=== PATIENT | female | born 1990 | race Hispanic/Latino ===

== ENCOUNTER → 2023-10-23 | Emergency (ER) | payer OTHER, SELFPAY ==
--- NOTE | 2023-10-23 21:31 | RAD REPORT ---
EXAM DESCRIPTION: Anibal Single View10/23/2023 9:07 pm CLINICAL HISTORY: Chest pain COMPARISON: none FINDINGS: The lungs appear clear of acute infiltrate. The heart is normal size IMPRESSION: No acute abnormalities displayed
[2023-10-23 22:40] LABS: Absolute Lymphocytes (CBC) 1.8 K/uL (0.7-4.9); Basophils % 0.4 % (0-1.3); Eosinophils % 0.2 % (0-4.4); Hematocrit 34.6 % (36.0-45.0); Lymphocytes % 17.6 % (15.3-44.8); MCV 95.1 fL (80-100); MPV 8.9 fL (7.6-11.3); Platelets 261 thou/uL (152-406); RBC Red Blood Cell Count 3.64 M/uL (3.86-4.86)
[2023-10-23 22:49] LABS: Anion Gap 7.5 mEq/L (5.0-15.0); Potassium 3.5 mEq/L (3.5-5.1); Troponin High Sensitivity 5.2 pg/mL (<58.9)
--- NOTE | 2023-10-23 23:48 | ER ---
Nurse's Notes [facility] Name: Poonam Taylor Age: 33 yrs Sex: Female : 1990 Arrival Date: 10/23/2023 Time: 20:28 Bed DX5 Private MD: Diagnosis: Chest pain, unspecified Presentation: 10/22 20:48 Chief complaint: Patient states: intermittent sharp substernal chest pain for 1.5 weeks km8 with some SOB; denies n/v/d or cough or fever/chills; also complaints of left leg cramping. Coronavirus screen: Client denies travel out of the [place] in the last 14 days. Ebola Screen: No symptoms or risks identified at this time. Initial Sepsis Screen: Does the patient meet any 2 criteria? HR > 90 bpm. No. Patient's initial sepsis screen is negative. Does the patient have a suspected source of infection? No. Patient's initial sepsis screen is negative. Risk Assessment: Do you want to hurt yourself or someone else? Patient reports no desire to harm self or others. Onset of symptoms was October 12, 2023. 20:48 Method Of Arrival: Ambulatory km8 20:48 Acuity: TITA 2 km8 Triage Assessment: 20:48 General: Appears in no apparent distress. Behavior is calm, cooperative, appropriate km8 for age. Pain: Complains of pain in mid-sternal area Pain does not radiate. Pain currently is 6 out of 10 on a pain scale. Quality of pain is described as sharp, Is intermittent. EENT: No signs and/or symptoms were reported regarding the EENT system. Neuro: Level of Consciousness is awake, alert, obeys commands, Oriented to person, place, time, situation, Appropriate for age. Cardiovascular: Reports chest pain, shortness of breath, Patient's skin is warm and dry. Respiratory: Airway is patent Respiratory effort is even, unlabored, Respiratory pattern is regular, symmetrical. GI: No signs and/or symptoms were reported involving the gastrointestinal system. : No signs and/or symptoms were reported regarding the genitourinary system. Derm: No signs and/or symptoms reported regarding the dermatologic system. Skin is intact, is healthy with good turgor, Skin is dry, Skin is pink, warm \T\ dry. normal, Skin temperature is warm. Musculoskeletal: Range of motion: intact in all extremities, Reports intermittent left leg cramping. 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 - Social history:: Smoking status: Patient denies any tobacco usage or history of. Patient uses street drugs, marijuana, Patient/guardian denies using alcohol. Screenin:48 [facility] ED Fall Risk Assessment (Adult) History of falling in the last 3 months, km8 including since admission No falls in past 3 months (0 pts) Confusion or Disorientation No (0 pts) Intoxicated or Sedated No (0 pts) Impaired Gait No (0 pts) Mobility Assist Device Used No (0 pt) Altered Elimination No (0 pt) Score/Fall Risk Level 0 - 2 = Low Risk Oriented to surroundings, Maintained a safe environment, Educated pt \T\ family on fall prevention, incl call for assistance when getting out of bed, Assessed \T\ reinforced patient's understanding of fall precautions. Abuse screen: Denies threats or abuse. Denies injuries from another. Nutritional screening: No deficits noted. Tuberculosis screening: No symptoms or risk factors identified. Assessment: 20:48 Reassessment: see triage assessment/notes. km8 22:08 Reassessment: Patient appears in no apparent distress at this time. km8 Vital Signs: 20:48 BP 150 / 93; Pulse 95; Resp 16; Temp 99(TE); Pulse Ox 100% on R/A; Weight 49.9 kg (R); km8 Height 5 ft. 1 in. (R); Pain 6/10; 23:59 BP 106 / 64; Pulse 62; Resp 16; Temp 98.9(TE); Pulse Ox 100% on R/A; Pain 3/10; km8 20:48 Body Mass Index 20.78 (49.90 kg, 154.94 cm) km8 20:48 Pain Scale: Adult 8 23:59 Pain Scale: Adult 8 Tracy Coma Score: 20:48 Eye Response: spontaneous(4). Motor Response: obeys commands(6). Verbal Response: km8 oriented(5). Total: 15. ED Course: 20:34 Patient arrived in ED. gm2 20:43 Jay Gurrola DO is Attending Physician. ms3 20:48 No provider procedures requiring assistance completed. Patient maintains SpO2 km8 saturation greater than 95% on room air. 20:48 Arm band placed on right wrist. km8 20:48 Patient has correct armband on for positive identification. km8 20:48 no rooms available for monitoring at this time. km8 20:52 EKG done, by ED staff, reviewed by Jay Gurrola DO. km8 20:54 Triage completed. km8 20:56 Patient placed in waiting room, Patient notified of wait time. km8 21:09 XRAY Chest (1 view) In Process Unspecified. EDMS 22:07 Initial lab(s) drawn, by me, sent to lab. Inserted saline lock: 20 gauge in left km8 antecubital area, using aseptic technique. Blood collected. 23:47 Bobby Vogt MD is Referral Physician. ms3 23:59 IV discontinued, intact, bleeding controlled, No redness/swelling at site. Pressure km8 dressing applied. 23:59 Provided Education on: d/c teaching. km8 Administered Medications: No medications were administered Medication: 20:48 VIS not applicable for this client. km8 Outcome: 23:47 Discharge ordered by . ms3 23:59 Discharged to home ambulatory, km8 23:59 Condition: good 23:59 Discharge instructions given to patient, Instructed on discharge instructions, follow up and referral plans. Demonstrated understanding of instructions, follow-up care, 10/23 00:00 Patient left the ED. km8 Signatures: Dispatcher [employer] EDWA Jay Gurrola DO DO ms3 Marquis Denise gm2 Valerie Alexander, RN RN km8
--- NOTE | 2023-10-23 23:48 | EDPHYS ---
Physician Documentation [facility] Name: Poonam Taylor Age: 33 yrs Sex: Female : 1990 Arrival Date: 10/23/2023 Time: 20:28 Bed DX5 Private MD: ED Physician Jay Gurrola HPI: 10/22 21:52 This 33 yrs old Female presents to ER via Ambulatory with complaints of Chest ms3 Tightness. 21:52 33-year-old female with no past medical history presents to the emergency department ms3 for 1 and half weeks of intermittent chest pain that is located substernally and described as being sharp. Patient states today's pain has been ongoing for a 3 hours. Patient states the pain is better after taking Tylenol.. 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 - Social history:: Smoking status: Patient denies any tobacco usage or history of. Patient uses street drugs, marijuana, Patient/guardian denies using alcohol. ROS: 21:52 Constitutional: Negative for fever, and chills. Neck: Negative for injury, pain, and ms3 swelling, Respiratory: Negative for shortness of breath, cough, wheezing, and pleuritic chest pain, Abdomen/GI: Negative for abdominal pain, nausea, vomiting, diarrhea, and constipation, MS/Extremity: Negative for injury and deformity, Skin: Negative for injury, rash, and discoloration, 21:52 Cardiovascular: Positive for chest pain, Exam: 21:52 Constitutional: This is a well developed, well nourished patient who is awake, alert, ms3 and in no acute distress. Head/Face: Normocephalic, atraumatic. Chest/axilla: Normal chest wall appearance and motion. Nontender with no deformity. Cardiovascular: Regular rate and rhythm with a normal S1 and S2. No gallops, murmurs, or rubs. Normal PMI, no JVD. No pulse deficits. Respiratory: Lungs have equal breath sounds bilaterally, clear to auscultation and percussion. No rales, rhonchi or wheezes noted. No increased work of breathing, no retractions or nasal flaring. Abdomen/GI: Soft, non-tender, with normal bowel sounds. No distension or tympany. No guarding or rebound. No evidence of tenderness throughout. Skin: Warm, dry with normal turgor. Normal color with no rashes, no lesions, and no evidence of cellulitis. MS/ Extremity: Pulses equal, no cyanosis. Neurovascular intact. Full, normal range of motion. 22:04 ECG was reviewed by the Attending Physician. ms3 Vital Signs: 20:48 BP 150 / 93; Pulse 95; Resp 16; Temp 99(TE); Pulse Ox 100% on R/A; Weight 49.9 kg (R); km8 Height 5 ft. 1 in. (R); Pain 6/10; 23:59 BP 106 / 64; Pulse 62; Resp 16; Temp 98.9(TE); Pulse Ox 100% on R/A; Pain 3/10; km8 20:48 Body Mass Index 20.78 (49.90 kg, 154.94 cm) km8 20:48 Pain Scale: Adult km8 23:59 Pain Scale: Adult km8 Tracy Coma Score: 20:48 Eye Response: spontaneous(4). Motor Response: obeys commands(6). Verbal Response: km8 oriented(5). Total: 15. MDM: 20:54 Patient medically screened. ms3 21:52 Differential diagnosis: abnormal EKG, acute myocardial infarction, chest wall pain. ms3 23:47 HEART Score: History: Slightly Suspicious (0), ECG: Normal (0), Age: < or = 45 years ms3 (0), Risk Factors: No Risk Factors Known (0), Troponin: < or = 1 x Normal Limit (0), Total Score = 0. Data reviewed: vital signs, nurses notes, lab test result(s), radiologic studies, and as a result, I will discharge patient. Counseling: I had a detailed discussion with the patient and/or guardian regarding the historical points, exam findings, and any diagnostic results supporting the discharge/admit diagnosis, lab results, radiology results, the need for outpatient follow up, to return to the emergency department if symptoms worsen or persist or if there are any questions or concerns that arise at home. Special discussion: Based on the patient's history, exam, and Dx evaluation, there is no indication for emergent intervention or inpatient Tx. It is understood by the patient/guardian that if the Sx's persist or worsen they need to return immediately for re-evaluation. ED course: Discussed labs, EKG, imaging with patient. Patient to follow-up with primary care physician in 2 to 3 days. Patient understands and agrees with plan. All questions were answered. Return precautions discussed include worsening symptoms, or any other concerns. On reevaluation patient is alert and oriented x 4, no apparent distress, nontoxic-appearing, ambulatory in the emergency department, speaking full sentences.. 10/22 20:43 Order name: Basic Metabolic Panel; Complete Time: 23:31 ms3 10/22 20:43 Order name: CBC with Diff; Complete Time: 23:31 ms3 10/22 20:43 Order name: Troponin HS; Complete Time: 23:31 ms3 10/22 20:43 Order name: XRAY Chest (1 view); Complete Time: 21:52 ms3 10/22 20:43 Order name: EKG; Complete Time: 20:43 ms3 10/22 20:43 Order name: EKG - Nurse/Tech; Complete Time: 21:08 ms3 10/22 20:43 Order name: IV Saline Lock; Complete Time: 22:22 ms3 10/22 20:43 Order name: Labs collected and sent; Complete Time: 22:22 ms3 10/22 20:43 Order name: O2 Per Protocol; Complete Time: 21:08 ms3 EC:04 Rate is 79 beats/min. Rhythm is regular. QRS Flora is Normal. RI interval is normal. QRS ms3 interval is normal. Clinical impression: Normal ECG. Interpreted by me. Reviewed by me. Administered Medications: No medications were administered Disposition Summary: 10/23/23 23:47 Discharge Ordered Notes: Location: Home ms3 Condition: Stable ms3 Diagnosis - Chest pain, unspecified ms3 Followup: ms3 - With: Bobby Vogt MD - When: 1 - 2 days - Reason: Recheck today's complaints Discharge Instructions: - Discharge Summary Sheet ms3 - Nonspecific Chest Pain, Adult ms3 Forms: - Medication Reconciliation Form ms3 - Thank You Letter ms3 - Antibiotic Education ms3 - Prescription Opioid Use ms3 - Patient Portal Instructions ms3 - Leadership Thank You Letter ms3 Signatures: Dispatcher [employer] Jay Choi, DO ms3 Valerie Alexander, RN RN km8
[2023-10-24 01:18] VITALS: BP 106/64; TEMP 98.9; O2SAT 100
== END ==
LOC: ER 20:28
DX: R07.89 Other chest pain (principal)
CPT/HCPCS: 36415; 71045; 80048; 84484; 85025; 99284